=== PATIENT | female | born 1960 | race Caucasian/White ===

== ENCOUNTER → 2017-08-13 | Outpatient (CLI) | payer BC | END | disposition home or self-care (01) | LOC: CDC 14:11 | DX: Z01.810 Encounter for preprocedural cardiovascular examination (principal); R94.31 Abnormal electrocardiogram [ECG] [EKG] | CPT/HCPCS: 93000 ==

== ENCOUNTER 2017-08-27 06:43 | Day surgery (SDC) | payer BC ==
[~2017-08-27] VITALS: Ht 162.6 cm; Wt 93.4 kg
[~2017-08-27 06:43] MED LIST: COQ-10100 MG PO; KRILL OIL 3501 EACH PO; PRILOSEC20 MG PO; RED YEAST RICE600 MG PO; VALSARTAN-HCTZ1 EAC3 PO; WELCHOL625 MG PO
[2017-08-27 07:06] VITALS: BP 152/84
[2017-08-27 08:30] LABS: METH RESISTANT S AUREUS PCR NEGATIVE (NEGATIVE)
[2017-08-27 08:35] LABS: PROBE CHECK PASS; SPECIMEN PROCESSING CONTROL PASS
[2017-08-27 10:28] VITALS: BP 136/73
[2017-08-27 11:30] VITALS: BP 138/77
== END 2017-08-27 11:30 | disposition home or self-care (01) ==
LOC: SDC 06:43
PROVIDERS: Obstetrics & Gynecology Gynecology
DX: N84.0 Polyp of corpus uteri (principal); N95.0 Postmenopausal bleeding; K21.9 Gastro-esophageal reflux disease without esophagitis; I10 Essential (primary) hypertension; E78.5 Hyperlipidemia, unspecified; E66.9 Obesity, unspecified; Z68.35 Body mass index [BMI] 35.0-35.9, adult; Z79.82 Long term (current) use of aspirin
CPT/HCPCS: 87641; 88305; J1100; J1885; J2250; J2405; J3010; Q0175